=== PATIENT | female | born 1970 | race Hispanic/Latino ===

== ENCOUNTER → 2018-09-19 | Outpatient (REF) | payer SELFPAY ==
[~2018-09-19] MED LIST: FERROUS SULF325 M2 PO
[2018-09-19 09:18] VITALS: BP 133/77
== END | disposition home or self-care (01) | DRG 951 ==
LOC: PO 08:24 → ORM 08:30
PROVIDERS: ATTEND Surgery
DX: Z01.818 Encounter for other preprocedural examination (principal); K40.90 Unilateral inguinal hernia, without obstruction or gangrene, not specified as recurrent; D64.9 Anemia, unspecified; Z98.51 Tubal ligation status

== ENCOUNTER 2018-09-25 09:02 | Day surgery (SDC) | payer MEDICAID ==
[~2018-09-25] VITALS: Ht 160 cm; Wt 82.6 kg
[2018-09-25 13:01] VITALS: BP 115/68
== END 2018-09-25 13:30 | disposition home or self-care (01) ==
LOC: ORM 09:02
PROVIDERS: ATTEND Surgery
DX: K40.90 Unilateral inguinal hernia, without obstruction or gangrene, not specified as recurrent (principal)
CPT/HCPCS: C9290; J0131